=== PATIENT | female | born 1970 | race Caucasian/White ===

== ENCOUNTER → 2016-09-30 | Outpatient (CLI) | payer OTHER ==
[~2016-09-30] MED LIST: ALLE180T33 PO; LEVA500T PO; LEVO88TA3 PO; MACR100C3 PO; PERC5TAB6 PO; VITA500055 PO
--- NOTE | 2016-09-30 16:23 | REP ---
RENAL ULTRASOUND AND BLADDER ULTRASOUND: Real-time sonographic evaluation of the kidneys are performed and demonstrates both kidneys to be normal in size and echotexture. Right kidney measuring 11.5 x 5.8 x 4.9 cm and left kidney 11.6 x 4.4 x 5.6 cm. There is no hydronephrosis bilaterally. A calculus in the lower pole of the right kidney measures 1.8 cm in diameter. No other definite stones are seen sonographically. No renal mass is seen. The urinary bladder measures 7.1 x 8.7 x 6.3 cm and demonstrates no mass or calculus. IMPRESSION: No hydronephrosis. There is a calculus in the lower pole of the right renal collecting system 1.8 cm in diameter. No other definite renal stones are seen. Signed by Harshad Fraga MD 10/01/2016 08:04 P
== END ==
LOC: M RAD 15:32
PROVIDERS: ATTEND Nurse Practitioner Women's Health
DX: N20.0 Calculus of kidney (principal)

== ENCOUNTER → 2016-10-21 | Outpatient (CLI) | payer OTHER | LOC: M RAD 16:03 | PROVIDERS: ATTEND Urology | DX: N20.0 Calculus of kidney (principal); Z53.8 Procedure and treatment not carried out for other reasons ==

== ENCOUNTER → 2016-10-24 | Outpatient (CLI) | payer OTHER ==
[~2016-10-24] MED LIST changes: +ISOVUE-370 76% 100ML VIAL (Q9967) As Ordered ONE
--- NOTE | 2016-10-24 20:15 | REP ---
Clinical: Nephrolithiasis. Technique: Axial precontrast contrast enhanced and delayed images of the abdomen and pelvis using 100 ml Isovue 370 intravenous contrast material with coronal and sagittal re-formations. Comparison: 06/12/2016. Findings: Evaluation of the urinary tract system again demonstrates multiple bilateral nonobstructing renal calculi most of which measure up to approximately 4 mm bilaterally however the right kidney demonstrates a stable 13 mm calculus in the midpole region. There is no perinephric stranding, hydroureteronephrosis, or obstructing ureteral calculi bilaterally and the bladder is unremarkable. Liver, spleen, pancreas, gallbladder, and bilateral adrenal glands are normal. The enteric system is without obstruction or acute inflammatory process few scattered colonic diverticula noted without acute diverticulitis. Pelvis demonstrates normal bladder and age-appropriate uterus/adnexa. No pelvic fluid or ascites. No adenopathy. Vascular structures are normal. No intraperitoneal or retroperitoneal adenopathy. Musculoskeletal structures are intact. Lung bases are clear. Impression: 1. Bilateral nonobstructing renal calculi primarily measuring up to 4 mm as well as a single renal calculus in the right kidney entering up to 13 mm. Findings essentially unchanged compared to prior examination. No further urinary tract pathology noted. 2. Scattered diverticula without acute diverticulitis. Signed by Shay Valle MD 10/24/2016 08:07 P
== END ==
LOC: M RAD 16:31
PROVIDERS: ATTEND Urology
DX: N20.0 Calculus of kidney (principal)
CPT/HCPCS: 74178; Q9967

== ENCOUNTER → 2016-11-08 | Outpatient (REF) | payer OTHER ==
[~2016-11-08] MED LIST changes: -ISOVUE-370 76% 100ML VIAL (Q9967) As Ordered ONE
== END ==
LOC: M SMT 09:00
PROVIDERS: ATTEND Urology
DX: N20.0 Calculus of kidney (principal)

== ENCOUNTER → 2016-11-15 | Outpatient (REF) | payer OTHER | LOC: M SMT 12:52 | PROVIDERS: ATTEND Urology | DX: N20.0 Calculus of kidney (principal) ==

== ENCOUNTER → 2016-12-24 | Outpatient (CLI) | payer OTHER ==
[~2016-12-24] MED LIST changes: +ALLO100T PO; +HYDR12.55 PO; +LEVO100T5 PO
[2016-12-24 08:45] LABS: MEAN CORPUSCULAR HEMOGLOBIN 30.5 pg (27.0-33.0); MEAN CORPUSCULAR HGB CONC 34.9 g/dl (32.0-36.5); MEAN CORPUSCULAR VOLUME 87.6 fl (80.0-96.0); WHITE BLOOD COUNT 4.4 K/mm3 (4.0-10.0)
[2016-12-24 09:12] LABS: ANION GAP 7 MEQ/L (8-16); BLOOD UREA NITROGEN 8 MG/DL (7-18); CALCIUM LEVEL 8.8 MG/DL (8.5-10.1); CARBON DIOXIDE LEVEL 28 MEQ/L (21-32); CHLORIDE LEVEL 104 MEQ/L (98-107); CREATININE FOR GFR 0.91 MG/DL (0.55-1.02); GLOMERULAR FILTRATION RATE > 60.0 (>58); GLUCOSE, FASTING 112 MG/DL (70-105); POTASSIUM SERUM 3.7 MEQ/L (3.5-5.1); SODIUM LEVEL 139 MEQ/L (136-145)
[2016-12-24 09:20] LABS: INR 0.99
--- NOTE | 2016-12-24 09:27 | REP ---
Chest two views HISTORY: Nephrolithiasis Comparison: None The lungs are clear. The heart is normal in size. The pulmonary vasculature is normal in appearance. The bony structure is intact. IMPRESSION: No acute disease. Signed by German Harrell MD 12/24/2016 09:19 A
--- NOTE | 2016-12-24 22:32 | ECGEPIP ---
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
== END ==
LOC: M LAB 08:00
PROVIDERS: ATTEND Urology
DX: Z01.818 Encounter for other preprocedural examination (principal); N20.0 Calculus of kidney

== ENCOUNTER → 2017-01-14 | Outpatient (CLI) | payer OTHER ==
[~2017-01-14] VITALS: Ht 157.5 cm; Wt 99.3 kg
[~2017-01-14] MED LIST changes: +CIPR500T3 PO; +CIPROFLOXACIN/D5W 400 MG/200 ML BAG (J0744) As Ordered ONE; +DITR5TAB PO; +HYDR-3713 PO; +HYDROmorphone HCL 1 MG/ML SYRINGE (J1170) IV PRN; +ISOVUE-300 61% 50ML VIAL (Q9967) As Ordered ONE; +KETOROLAC 30 MG/ML VIAL (J1885) As Ordered ONE; +KETOROLAC 30 MG/ML VIAL (J1885) IV ONE; +LIDOCAINE 2% INJ 100 MG/5 ML SDV (FOR ANES.) As Ordered ONE; +LIDOCAINE 2% MDV 20 ML VIAL As Ordered ONE; +LR 1,000 ML IV SCH; +METOCLOPRAMIDE INJ 10MG/2ML VIAL (J2765) As Ordered ONE; +METOCLOPRAMIDE INJ 10MG/2ML VIAL (J2765) IV ONE; +MIDAZOLAM INJ 5 MG/ML VIAL (J2250) As Ordered ONE; +NORCO, ANEXSIA 5/325MG TABLET (HYDROcodone/ACETAMINOPHEN) As Ordered ONE; +NORCO, ANEXSIA 5/325MG TABLET (HYDROcodone/ACETAMINOPHEN) PO ONE; +NORCO, ANEXSIA 5/325MG TABLET (HYDROcodone/ACETAMINOPHEN) PO PRN; +ONDANSETRON 4MG/2ML VIAL (J2405) As Ordered ONE; +ONDANSETRON 4MG/2ML VIAL (J2405) IV PRN; +PERCOCET 5MG/325MG TAB PO PRN; +PROPOFOL 200 MG/20 ML VIAL As Ordered ONE; +TYLE650T35 PO; +cefTRIAXone SOD 1 GM VIAL (J0696) As Ordered ONE; +fentaNYL 100 MCG/2 ML INJECTION (J3010) As Ordered ONE; +fentaNYL 100 MCG/2 ML INJECTION (J3010) IV PRN; +oxyBUTYnin 5 MG TAB PO PRN
--- NOTE | 2017-01-14 17:19 | REPKIM ---
CLINICAL HISTORY: Diverticular calyceal kidney stone on the right, flank pain and history of UTIs. The referring urology service has asked a nephroureteral catheter (stent) placement for preop percutaneous nephrolithotripsy urology procedure on the right. PROCEDURE PERFORMED: 1. Ultrasound Right Kidney 2. Percutaneous Antegrade Nephrostogram 3. Percutaneous Nephroureteral catheter (stent) placement INTERVENTIONALIST: Shady Andrew MD CONSENT: The risks, benefits and alternatives to the procedure were explained to the patient and informed written consent was obtained. SEDATION: Sedation and analgesia was provided by the Anesthesiology Dept. MEDICATIONS: Rocephin 1gm IV and Local Lidocaine CONTRAST: 19 mL Isovue 300 EBL: 10 mL FLUORO TIME: 8.1 minutes DEVICE USED: 8.5F 45-cm pigtail; Nephroureteral catheter (stent) Lot#[id number] PROCEDURE/FINDINGS: The patient was brought to the interventional radiology suite and placed in the prone position, right flank prepped and draped in the usual sterile fashion. Time out procedure was performed. Ultrasound of the kidney showed a large calyceal stone in the mid to lower pole posterior calyx. No hydronephrosis. Using ultrasound and fluoroscopy guidance, an 18-gauge Trocar needle was advanced into the targeted mid to lower pole posterior calyx containing stone, after infiltration of the skin and deep tissues with local anesthetic. Contrast was injected and images were obtained. This showed free antegrade flow of contrast into the urinary bladder. Using a hydrophilic guidewire, the catheter- wire combination was advanced into the renal pelvis, proximal ureter then into the urinary bladder. The wire was then exchanged for a stiff wire. An 8.5- [place] 45-cm length nephroureteral catheter (stent) was introduced over the guidewire after serial dilation of its tract. The guidewire was withdrawn and the distal end of the loop curled in the bladder. The nephroureteral catheter was then flushed and capped. The patient tolerated the procedure well with no immediate complications. The patient was transferred to the recovery room in stable condition. This procedure was performed using ultrasound and fluoroscopy. Dr. Andrew was present. IMPRESSION: 1. A large diverticular calyceal symptomatic kidney stone on the right. Nephrostogram demonstrates free antegrade flow of contrast into the urinary bladder. 2. Successful 8.5F nephroureteral catheter (stent) placement via the posterior mid to lower pole calyx containing stone with its tip positioned in the urinary bladder as discussed above. This NU access will be used for subsequent percutaneous nephrolithotripsy urology procedure. cc: MD Freda Ferrara, JOAO MARSHALL
[2017-01-14 17:30] VITALS: BP 128/68
== END | disposition home or self-care (01) ==
LOC: M IRPRO 11:41
PROVIDERS: ATTEND Urology
DX: N20.0 Calculus of kidney (principal); Z87.440 Personal history of urinary (tract) infections
CPT/HCPCS: 50395; 74485; C1729; C1769; C1894; J0696; J1885; J2250; J2405; J2765; J3010; Q9967

== ENCOUNTER 2017-01-16 09:43 | Inpatient (IN) | payer OTHER ==
[~2017-01-16] VITALS: Ht 157.5 cm; Wt 99.8 kg
[~2017-01-16 09:43] MED LIST changes: -CIPR500T3 PO; -CIPROFLOXACIN/D5W 400 MG/200 ML BAG (J0744) As Ordered ONE; -HYDROmorphone HCL 1 MG/ML SYRINGE (J1170) IV PRN; -ISOVUE-300 61% 50ML VIAL (Q9967) As Ordered ONE; -KETOROLAC 30 MG/ML VIAL (J1885) As Ordered ONE; -KETOROLAC 30 MG/ML VIAL (J1885) IV ONE; +LEVA1TAB2 PO; -LEVA500T PO; -LIDOCAINE 2% INJ 100 MG/5 ML SDV (FOR ANES.) As Ordered ONE; -LIDOCAINE 2% MDV 20 ML VIAL As Ordered ONE; -LR 1,000 ML IV SCH; -MACR100C3 PO; +MACR100C43 PO; -METOCLOPRAMIDE INJ 10MG/2ML VIAL (J2765) As Ordered ONE; -METOCLOPRAMIDE INJ 10MG/2ML VIAL (J2765) IV ONE; -MIDAZOLAM INJ 5 MG/ML VIAL (J2250) As Ordered ONE; -NORCO, ANEXSIA 5/325MG TABLET (HYDROcodone/ACETAMINOPHEN) As Ordered ONE; -NORCO, ANEXSIA 5/325MG TABLET (HYDROcodone/ACETAMINOPHEN) PO ONE; -NORCO, ANEXSIA 5/325MG TABLET (HYDROcodone/ACETAMINOPHEN) PO PRN; -ONDANSETRON 4MG/2ML VIAL (J2405) As Ordered ONE; -ONDANSETRON 4MG/2ML VIAL (J2405) IV PRN; +PERC5TAB12 PO; -PERC5TAB6 PO; -PERCOCET 5MG/325MG TAB PO PRN; -PROPOFOL 200 MG/20 ML VIAL As Ordered ONE; -TYLE650T35 PO; -cefTRIAXone SOD 1 GM VIAL (J0696) As Ordered ONE; -fentaNYL 100 MCG/2 ML INJECTION (J3010) As Ordered ONE; -fentaNYL 100 MCG/2 ML INJECTION (J3010) IV PRN; -oxyBUTYnin 5 MG TAB PO PRN
[2017-01-16] MEDS ORDERED: LR 1,000 ML IV SCH ×2 (10:00→15:45)
[2017-01-16] MEDS ORDERED: CONRAY-60 60% 50ML VIAL (Q9961) As Ordered ONE ×4 (10:50→14:38)
[2017-01-16 11:48] LABS: CONTROL LINE UCG INT CTR LINE PRESENT
[2017-01-16] MEDS ORDERED: fentaNYL 100 MCG/2 ML INJECTION (J3010) As Ordered ONE (12:04)
[2017-01-16] MEDS ORDERED: MIDAZOLAM INJ 2 MG/2 ML VIAL (J2250) As Ordered ONE (12:04)
[2017-01-16] MEDS ORDERED: PROPOFOL 200 MG/20 ML VIAL As Ordered ONE (12:04)
[2017-01-16] MEDS ORDERED: ROCURONIUM BROMIDE 50 MG/5 ML VIAL/SYRINGE As Ordered ONE ×2 (12:04→13:44)
[2017-01-16] MEDS ORDERED: dexameTHASONE 4 MG/ML 1ML VIAL (J1100) As Ordered ONE (12:08)
[2017-01-16] MEDS ORDERED: LIDOCAINE 2% JELLY 30 ML As Ordered ONE (12:08)
[2017-01-16] MEDS ORDERED: ONDANSETRON 4MG/2ML VIAL (J2405) As Ordered ONE (12:08)
[2017-01-16] MEDS ORDERED: HYDROmorphone HCL 2 MG/ML 1ML VIAL (J1170) As Ordered ONE (13:20)
[2017-01-16] MEDS ORDERED: KETOROLAC 60 MG/2 ML VIAL (J1885) As Ordered ONE (14:59)
[2017-01-16] MEDS ORDERED: ONDANSETRON 4MG/2ML VIAL (J2405) IV PRN ×2 (15:45→23:00)
[2017-01-16 15:49] LABS: MEAN CORPUSCULAR HEMOGLOBIN 31.2 pg (27.0-33.0); MEAN CORPUSCULAR HGB CONC 34.4 g/dl (32.0-36.5); MEAN CORPUSCULAR VOLUME 90.6 fl (80.0-96.0); RED CELL DISTRIBUTION WIDTH 13.2 % (11.5-14.5); WHITE BLOOD COUNT 13.8 K/mm3 (4.0-10.0)
[2017-01-16] MEDS: fentaNYL 100 MCG/2 ML INJECTION (J3010) IV PRN ×2 (15:52→16:10)
--- NOTE | 2017-01-16 15:57 | REP ---
C-ARM VIEWS DURING URETERAL STENT PLACEMENT: Nephrostomy catheter in place is visualized and a wire is passed down the ureter. A ureteral stent is placed with the proximal end coiled in the region of the renal pelvis and the distal end coiled in the region of the urinary bladder. 5 minutes 58 seconds fluoroscopy time utilized. Signed by Harshad Fraga MD 01/16/2017 05:15 P
[2017-01-16 16:08] LABS: ANION GAP 8 MEQ/L (8-16); BLOOD UREA NITROGEN 10 MG/DL (7-18); CARBON DIOXIDE LEVEL 24 MEQ/L (21-32); CHLORIDE LEVEL 108 MEQ/L (98-107); CREATININE FOR GFR 0.95 MG/DL (0.55-1.02); GLOMERULAR FILTRATION RATE > 60.0 (>58); GLUCOSE, FASTING 163 MG/DL (70-105); POTASSIUM SERUM 3.8 MEQ/L (3.5-5.1); SODIUM LEVEL 140 MEQ/L (136-145)
[2017-01-16] MEDS ORDERED: oxyCODONE 5MG TAB PO PRN (16:15)
[2017-01-16] MEDS ORDERED: MORPHINE 4 MG/ML 1ML SYRINGE IV PRN (16:15)
[2017-01-16 17:00] VITALS: BP 128/76
[2017-01-16] MEDS: CIPROFLOXACIN 500 MG TAB PO SCH (17:25)
[2017-01-16 17:30] VITALS: BP 125/71
[2017-01-16] MEDS: KCL 20MEQ IN D5/0.2%NS 1000ML 1,000 ML IV SCH (17:49)
[2017-01-16] MEDS ORDERED: PANTOPRAZOLE 40MG INJ (PROTONIX) (C9113) IV SCH (18:00)
[2017-01-16 18:30] VITALS: BP 127/76
[2017-01-16 22:00] VITALS: BP 112/77
[2017-01-16] MEDS: ACETAMINOPHEN 650MG ER TAB (TYLENOL ARTHRITIS) PO SCH (22:22)
[2017-01-16] MEDS: KETOROLAC 30 MG/ML VIAL (J1885) IV SCH (22:22)
[2017-01-17] MEDS: KCL 20MEQ IN D5/0.2%NS 1000ML 1,000 ML IV SCH ×2 (01:09→08:29)
[2017-01-17] MEDS: ACETAMINOPHEN 650MG ER TAB (TYLENOL ARTHRITIS) PO SCH (05:51)
[2017-01-17] MEDS: CIPROFLOXACIN 500 MG TAB PO SCH (05:51)
[2017-01-17 06:00] VITALS: BP 137/93
[2017-01-17 06:46] LABS: MEAN CORPUSCULAR HEMOGLOBIN 31.1 pg (27.0-33.0); MEAN CORPUSCULAR HGB CONC 35.1 g/dl (32.0-36.5); MEAN CORPUSCULAR VOLUME 88.5 fl (80.0-96.0); RED CELL DISTRIBUTION WIDTH 13.2 % (11.5-14.5); WHITE BLOOD COUNT 13.1 K/mm3 (4.0-10.0)
[2017-01-17 06:57] LABS: ANION GAP 7 MEQ/L (8-16); BLOOD UREA NITROGEN 9 MG/DL (7-18); CALCIUM LEVEL 8.2 MG/DL (8.5-10.1); CARBON DIOXIDE LEVEL 25 MEQ/L (21-32); CHLORIDE LEVEL 106 MEQ/L (98-107); CREATININE FOR GFR 1.01 MG/DL (0.55-1.02); GLOMERULAR FILTRATION RATE > 60.0 (>58); GLUCOSE, FASTING 125 MG/DL (70-105); POTASSIUM SERUM 4.3 MEQ/L (3.5-5.1); SODIUM LEVEL 138 MEQ/L (136-145)
--- NOTE | 2017-01-17 08:09 | RO ---
DATE OF PROCEDURE: 01/16/2017 PREPROCEDURE DIAGNOSIS: Left kidney stones. POSTPROCEDURE DIAGNOSIS: Left kidney stones. FINDINGS: Two 4 mm stones in the mid pole of the collecting system in the calyceal diverticulum. The patient has multiple other small, 1 to 2 mm, stones in the upper pole, mid pole and lower pole. SURGERY PERFORMED: Right percutaneous nephrolithotripsy, plus antegrade double J stent. SURGEON: Willie West MD CHILD WELFARE COUNSELOR: None. ANESTHESIA: General. COMPLICATIONS: None. ESTIMATED BLOOD LOSS: N/A. HISTORY OF PRESENT ILLNESS: 46-year-old female patient that has recurrent urinary tract infection (UTI) and right flank pain. She has two stones in the mid collecting system in the calyceal diverticulum. For this reason she had an interventional radiology consultation, who placed a nephroureteral stent. Today , she has consented for a right percutaneous nephrolithotripsy, plus antegrade left double J stent placement. DESCRIPTION OF PROCEDURE: With the patient in the prone position under general anesthesia, after prepping and draping the area of concern, which included the right flank, we started by passing a guidewire down the nephroureteral stent into the bladder and took the nephroureteral stent out. We then proceeded to actually cut the skin for about 2 cm in length and then passed a double lumen catheter up to the entrance of the ureter. We then proceeded to actually take the guidewire out and then took out the double lumen catheter. Following one of the guidewires, we dilated the tract with a balloon dilator and then placed an Amplatz sheath. We then proceeded to actually pass the nephroscope through the Amplatz sheath. We could see multiple small stones. With shock pulse lithotripsy, we sucked out all the stones and we also sucked out the stones from the lower pole and upper pole. We then passed a flexible cystoscope and visualized the upper pole, mid pole, and lower pole and there were no stones left. We then used the ureteroscope and went down the ureter and there were no stones in the ureter. We then proceeded with a nephroscope and shock pulse to suck all the clots out and with the perc Ncircle basket we grabbed the little stones left in the collecting system. Once we verified that there were no stones left, we actually passed an antegrade double J stent placement, #6-[place] Cook, and then took the Amplatz sheath and passed a [place] tip catheter, #18-[place], and placed it to gravity. We secured the [place] to the skin with #3-0 nylon silk stitch times two. We placed ABD pads and Tegaderm on top of the nephrostomy tube. PLAN: The patient will pass to recovery and then to the floor with the nephrostomy tube to gravity and the Oliveros catheter. Tomorrow she will have a CT scan. If there are no stones left, we will take the tubes out. If there are some stones, we might take a second look. JOANNA
[2017-01-17] MEDS: KETOROLAC 30 MG/ML VIAL (J1885) IV SCH (08:23)
[2017-01-17] MEDS ORDERED: ONDANSETRON 4MG/2ML VIAL (J2405) IV SCH (09:00)
[2017-01-17] MEDS ORDERED: NORCO, ANEXSIA 5/325MG TABLET (HYDROcodone/ACETAMINOPHEN) PO PRN (09:45)
[2017-01-17 10:00] VITALS: BP 119/55
[2017-01-17] MEDS ORDERED: ACETAMINOPHEN 650MG ER TAB (TYLENOL ARTHRITIS) PO PRN (10:00)
--- NOTE | 2017-01-17 10:54 | REP ---
REASON: Renal calculi and right sided nephrostomy tube. COMPARISON: 10/24/2016. Limited evaluation of the solid intraabdominal organs and gallbladder show no gross abnormalities. Small amount of increased density is seen in the gallbladder possibly secondary to sludge formation. Limited evaluation of the pancreas and adrenal glands show no gross abnormalities or significant changes. Limited evaluation of the abdominal aorta and periaortic regions show no gross abnormalities or significant changes. There is a right sided nephrostomy tube in place. This is seen in conjunction with a right sided ureteral stent the distal portion of which is coiled within the urinary bladder which is decreased. This seen in conjunction with a Oliveros balloon catheter further decompressing the urinary bladder. There is no hydronephrosis. There are bilateral renal calculi. There are no acute findings on the left. No free fluid or free air is seen in the abdomen or pelvis. The bowel loops and their mesenteries are essentially unchanged. The lung bases are clear and unchanged. IMPRESSION: 1. Postoperative change involving the right kidney as described above without evidence of a significant hematoma or abnormal perinephric fluid collection. 2. Bilateral renal calculi. 3. Other findings as described above. Signed by Ozzie Gomez DO 01/17/2017 01:42 P
[2017-01-17] MEDS ORDERED: TYLE650T35 PO (13:44)
[2017-01-17] MEDS ORDERED: CIPR500T3 PO (13:44)
[2017-01-17 14:00] VITALS: BP 111/56
--- NOTE | 2017-01-18 01:30 | DSES ---
DATE OF ADMISSION: 01/16/2017 DATE OF DISCHARGE: 01/17/2017 PREOPERATIVE DIAGNOSIS: Right renal stones. POSTOPERATIVE DIAGNOSIS: Right calyceal diverticulum renal stones. FINDINGS: Right calyceal diverticulum renal stones, multiple, small in diameter accumulated in the calyceal diverticulum. SURGERY PERFORMED: Right percutaneous nephrolithotripsy plus antegrade double J stent placement, 6-[place] Cook. ADMITTING SURGEON: Willie West MD. DISCHARGE SURGEON: Willie West MD. SURGERY PERFORMED BY: Willie West MD. HISTORY OF PRESENT ILLNESS: This is a 46-year-old female patient that actually has calyceal diverticulum stones in the right kidney and multiple other stones in the upper pole, mid pole and lower pole, about 1-2 mm in diameter. For this reason, the patient had a nephroureteral stent placed on the right kidney by interventional radiology. The patient had a percutaneous lithotripsy on 01/16/2017, and after this procedure the patient was hospitalized. HOSPITALIZATION COURSE: The patient did very well. By postoperative day #1, she was tolerating regular diet. Her urine was clear. For this reason, we took out the Oliveros catheter from the bladder and she voided very well. A CT scan of the abdomen and pelvis was done, which showed intraparenchymal 1 mm stones in the upper pole. There is also in the mid pole two 2 mm stones in the intraparenchymal area also. There are no stones left in the renal pelvis, ureter or in the collecting system in the kidney. For this reason, we will remove the nephrostomy tube out today and place a urostomy bag. Plan will be the following: She will go home today with Tylenol for pain 650 mg one tablet by mouth every 8 hours and ciprofloxacin one tablet by mouth twice a day for 10 days. She will followup in 1-2 weeks for removal of right double J stent placement.
== END 2017-01-17 16:10 | disposition home or self-care (01) | DRG 661 ==
LOC: M OR 09:43 → M MS5PR 16:30
PROVIDERS: ADMIT Urology; ATTEND Urology
PROC: 0TP98DZ Removal of Intraluminal Device from Ureter, Via Natural or Artificial Opening Endoscopic (ICD-10-PCS; 2017-01-16)
PROC: 0T768DZ Dilation of Right Ureter with Intraluminal Device, Via Natural or Artificial Opening Endoscopic (ICD-10-PCS; 2017-01-16)
PROC: 0TC08ZZ Extirpation of Matter from Right Kidney, Via Natural or Artificial Opening Endoscopic (ICD-10-PCS; principal; 2017-01-16 11:45)
DX: N28.89 Other specified disorders of kidney and ureter (principal); N20.0 Calculus of kidney; Z87.440 Personal history of urinary (tract) infections; Z79.899 Other long term (current) drug therapy

== ENCOUNTER → 2017-02-05 | Outpatient (REF) | payer OTHER ==
[~2017-02-05] MED LIST changes: +CIPR500T3 PO; +TYLE650T35 PO
== END ==
LOC: M SMT 12:57
PROVIDERS: ATTEND Urology
DX: N20.0 Calculus of kidney (principal)

== ENCOUNTER → 2017-02-17 | Outpatient (REF) | payer OTHER | LOC: M SMT 16:55 | PROVIDERS: ATTEND Nurse Practitioner Women's Health | DX: N20.0 Calculus of kidney (principal) ==

== ENCOUNTER → 2017-03-05 | Outpatient (REF) | payer OTHER | LOC: M SMT 17:10 | PROVIDERS: ATTEND Urology | DX: N39.0 Urinary tract infection, site not specified (principal) ==

== ENCOUNTER → 2017-06-26 | Outpatient (CLI) | payer OTHER ==
--- NOTE | 2017-06-26 10:02 | REP ---
Clinical: Nephrolithiasis. Comparison: 01/17/2017. Findings: Evaluation of the urinary tract system demonstrates multiple bilateral nonobstructing intrarenal calculi measuring up to 5 mm in the right kidney and 4 mm in left kidney. No perinephric stranding, hydroureteronephrosis, or obstructing ureteral calculi are identified. The bladder is normal. Liver, spleen, pancreas, gallbladder, and bilateral adrenal glands are normal. The enteric system is without obstruction or acute inflammatory process. Normal terminal ileum and appendix are identified in the right lower quadrant. Pelvis demonstrates normal bladder and age-appropriate uterus/adnexa. No pelvic fluid or ascites. No free air. No adenopathy. Abdominal aorta without aneurysm. Musculoskeletal structures are intact and normal. Impression: Bilateral nephrolithiasis. No further acute abdominopelvic pathology appreciated. Signed by Shay Valle MD 06/26/2017 09:54 A
== END ==
LOC: M RAD 09:07
PROVIDERS: ATTEND Internal Medicine Nephrology
DX: N20.0 Calculus of kidney (principal)

== ENCOUNTER → 2018-04-07 | Outpatient (REF) | payer OTHER | LOC: M SMT 13:12 | DX: N39.0 Urinary tract infection, site not specified (principal) | CPT/HCPCS: 87186 ==

== ENCOUNTER → 2018-06-22 | Outpatient (REF) | payer OTHER ==
[2018-06-22 13:13] LABS: CHOLESTEROL LEVEL 139 MG/DL (<200); CHOLESTEROL RISK RATIO 2.957 (<5); HDL CHOLESTEROL 47 MG/DL (>40); LDL CHOLESTEROL 66 MG/DL (<100); NON-HDL-C 92 MG/DL; TRIGLYCERIDES LEVEL 131 MG/DL (<150)
== END ==
LOC: M LAB REF 12:52
DX: E78.00 Pure hypercholesterolemia, unspecified (principal); N20.0 Calculus of kidney; N39.0 Urinary tract infection, site not specified
CPT/HCPCS: 80061

== ENCOUNTER → 2022-04-24 | Outpatient (CLI) | payer OTHER ==
[~2022-04-24] MED LIST changes: +ACET650T61 PO; -TYLE650T35 PO
[2022-04-24 17:05] LABS: APPEARANCE, URINE MANUAL CLEAR (CLEAR); COLOR, URINE MANUAL LT YELLOW (YELLOW)
[2022-04-24 17:06] LABS: BILIRUBIN, URINE MANUAL NEGATIVE (NEGATIVE); BLOOD URINE MANUAL POSITIVE (NEGATIVE); GLUCOSE, URINE (UA) MANUAL NEGATIVE (NEGATIVE); KETONE, URINE MANUAL NEGATIVE (NEGATIVE); LEUKOCYTE ESTERASE, URINE MAN POSITIVE (NEGATIVE); NITRITE, URINE MANUAL NEGATIVE (NEGATIVE); PH,URINE MAN 5.5 UNITS (5.0 - 7.0); PROTEIN, URINE MANUAL NEGATIVE (NEGATIVE); SPECIFIC GRAVITY,URINE MANUAL 1.005 (1.002-1.035); UROBILINOGEN, URINE MANUAL NORMAL (NORMAL)
[2022-04-24 17:15] LABS: HEMATOCRIT 40.9 % (36.0-47.0); HEMOGLOBIN 13.3 g/dl (12.0-15.5); MEAN CORPUSCULAR HEMOGLOBIN 29.5 pg (27.0-33.0); MEAN CORPUSCULAR HGB CONC 32.5 g/dl (32.0-36.5); MEAN CORPUSCULAR VOLUME 90.7 fl (80.0-96.0); PLATELET COUNT, AUTOMATED 199 10^3/uL (150-450); RED BLOOD COUNT 4.51 10^6/uL (4.00-5.40); WHITE BLOOD COUNT 7.3 10^3/uL (4.0-10.0)
[2022-04-24 17:29] LABS: INR 0.96; PARTIAL THROMBOPLASTIN TIME 34.5 SECONDS (25.9-37.0); PROTHROMBIN TIME 13.2 SECONDS (12.7-14.5)
[2022-04-24 17:39] LABS: BLOOD UREA NITROGEN 18 MG/DL (7-18); CALCIUM LEVEL 9.3 MG/DL (8.5-10.1); CARBON DIOXIDE LEVEL 28 MEQ/L (21-32); CHLORIDE LEVEL 101 MEQ/L (98-107); CREATININE FOR GFR 0.96 MG/DL (0.55-1.30); GLOMERULAR FILTRATION RATE > 60.0 (>51); GLUCOSE, FASTING 85 MG/DL (70-100); POTASSIUM SERUM 3.9 MEQ/L (3.5-5.1); SODIUM LEVEL 136 MEQ/L (136-145)
[2022-04-24 17:48] LABS: RBC, URINE 0-1 /hpf (0-3); SQUAMOUS EPITHELIAL CELL URINE SMALL AMOUNT /hpf (SMALL AMT); WBC, URINE 0-1 /hpf (0-3)
[2022-04-24 17:49] LABS: BACTERIA, URINE SMALL AMOUNT; HYALINE CAST, URINE NONE SEEN /lpf (0-1)
== END ==
LOC: M LAB 15:58
PROVIDERS: ATTEND Nurse Practitioner Women's Health
DX: N20.0 Calculus of kidney (principal); Z01.818 Encounter for other preprocedural examination

== ENCOUNTER → 2022-04-28 | Outpatient (CLI) | payer OTHER | LOC: M LABSMTC 10:52 | PROVIDERS: ATTEND Anesthesiology | DX: Z01.812 Encounter for preprocedural laboratory examination (principal); Z20.822 Contact with and (suspected) exposure to COVID-19 ==

== ENCOUNTER 2022-05-02 06:06 | Day surgery (SDC) | payer OTHER ==
[~2022-05-02] VITALS: Ht 157.5 cm; Wt 101.6 kg
[~2022-05-02 06:06] MED LIST changes: +ceFAZolin SOD 2 GM in IV 1 EA IV ONE
[2022-05-02] MEDS ORDERED: propofoL 500 MG/50 ML VIAL As Ordered ONE (07:02)
[2022-05-02] MEDS ORDERED: ONDANSETRON 4MG 2ML VIAL As Ordered ONE (07:03)
[2022-05-02] MEDS ORDERED: propofoL 200 MG/20 ML VIAL As Ordered ONE (07:07)
[2022-05-02] MEDS ORDERED: fentaNYL 100 MCG/2 ML INJECTION As Ordered ONE (07:08)
[2022-05-02] MEDS ORDERED: FLOM0.4C39 PO (08:01)
[2022-05-02] MEDS ORDERED: ACET300T47 PO (08:01)
[2022-05-02 09:15] VITALS: BP 122/74
== END 2022-05-02 09:21 | disposition home or self-care (01) ==
LOC: M SDC 06:06
PROVIDERS: ATTEND Urology
DX: N20.0 Calculus of kidney (principal); E03.9 Hypothyroidism, unspecified; E55.9 Vitamin D deficiency, unspecified; J30.2 Other seasonal allergic rhinitis; E78.1 Pure hyperglyceridemia; N18.9 Chronic kidney disease, unspecified; Z84.1 Family history of disorders of kidney and ureter; Z87.440 Personal history of urinary (tract) infections; Z87.442 Personal history of urinary calculi; Z79.899 Other long term (current) drug therapy; Z79.890 Hormone replacement therapy; Z88.2 Allergy status to sulfonamides; Z91.011 Allergy to milk products
CPT/HCPCS: 50590; 74018; 93005; J0690; J2405; J3010

== ENCOUNTER → 2022-06-07 | Outpatient (CLI) | payer OTHER ==
[~2022-06-07] MED LIST changes: +ACET300T47 PO; +FLOM0.4C39 PO; -ceFAZolin SOD 2 GM in IV 1 EA IV ONE
== END ==
LOC: M RAD 16:19
PROVIDERS: ATTEND Nurse Practitioner Women's Health
DX: N20.0 Calculus of kidney (principal)

== ENCOUNTER → 2022-12-25 | Outpatient (CLI) | payer OTHER ==
[2022-12-25 15:34] LABS: AMORPHOUS SEDIMENT SMALL (NEGATIVE); APPEARANCE, URINE TURBID (CLEAR); BACTERIA, URINE AUTO 1+ (NEGATIVE); BILIRUBIN, URINE AUTO NEGATIVE (NEGATIVE); BLOOD, URINE BLOOD 2+ (NEGATIVE); CALCIUM OXALATE CRYSTALS MODERATE; COLOR, URINE AMBER (YELLOW); GLUCOSE, URINE (UA) AUTO NEGATIVE (NEGATIVE); KETONE, URINE AUTO NEGATIVE (NEGATIVE); LEUKOCYTE ESTERASE, URINE AUTO TRACE (NEGATIVE); MUCUS, URINE SMALL (NEGATIVE); NITRITE, URINE AUTO NEGATIVE (NEGATIVE); PROTEIN, URINE AUTO NEGATIVE (NEGATIVE); RBC, URINE AUTO 3 /HPF (0-3); SPECIFIC GRAVITY URINE AUTO 1.021 (1.002-1.035); SQUAMOUS EPITHELIAL CELL UR AU 12 /HPF (0-6); UROBILINOGEN, URINE AUTO 0.2 mg/dL (0.0-2.0); WBC, URINE AUTO 8 /HPF (0-3)
== END ==
LOC: M PLAIMG 10:06
PROVIDERS: ATTEND Physician Assistant
DX: N20.0 Calculus of kidney (principal); R30.0 Dysuria
CPT/HCPCS: 74018; 81001; 87086; G0463